=== PATIENT | male | born 1980 | race Asian ===

== ENCOUNTER 2016-08-15 00:11 | Emergency (ER) | payer OTHER ==
[~2016-08-15] VITALS: Ht 175.3 cm; Wt 95.3 kg
[2016-08-15 00:15] VITALS: BP 125/61; PULSE 100; RESP 18; TEMP 97.8; O2SAT 98
[2016-08-15 00:33] VITALS: BP 124/62; PULSE 98; RESP 18; TEMP 97.8; O2SAT 98
== END 2016-08-15 00:33 ==
LOC: SED 00:11
DX: Z02.89 Encounter for other administrative examinations (principal)
CPT/HCPCS: 99283